=== PATIENT | male | born 1945 | race Caucasian/White ===

== ENCOUNTER 2018-06-06 07:45 | Day surgery (SDC) | payer OTHER ==
[~2018-06-06 07:45] MED LIST: ADULT ASPIRIN81 MG; ATORVASTATIN CA40 MG PO; ENALAPRIL MALEA10 MG PO; FORTAMET1000 MG PO; LEVOTH PO; METROPOLOL PO
[2018-06-06] MEDS ORDERED: PERCOCET 5-3251 EACH PO (14:24)
[2018-06-06] MEDS ORDERED: MIRALAX17 GM PO (14:24)
[2018-06-06] MEDS ORDERED: NEURONTIN300 MG PO (14:24)
== END 2018-06-06 17:00 | disposition home or self-care (01) ==
LOC: CIR.AMB 07:45
DX: K40.90 Unilateral inguinal hernia, without obstruction or gangrene, not specified as recurrent (principal)